=== PATIENT | female | born 1980 | race Caucasian/White ===

== ENCOUNTER → 2018-11-21 | Day surgery (SDC) | payer MEDICAID ==
--- NOTE | 2018-11-20 14:32 | PREOPHP ---
Scheduled for outpatient surgery 11/21/2018. HISTORY OF PRESENT ILLNESS: The patient is a 38-year-old female in overall good health who has had an enlarging painful lump in the left breast for the past 4 years. Mammogram revealed a 2.5 cm mass in the upper outer quadrant at 1 o'clock. Ultrasound revealed the same finding with a mass at 1 o'clock approximately 4 cm from the nipple. 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 In view of the persistence and associated pain, she is going to undergo excision of the left breast mass. PAST MEDICAL HISTORY: None. ALLERGIES: NONE. OPERATIONS: None. OBSTETRIC AND GYNECOLOGIC HISTORY: 3, para 3. She has regular menstrual periods. PHYSICAL EXAMINATION: VITAL SIGNS: She is 5-foot 3 inches, 119 pounds with normal vital signs. HEENT: Within normal limits. LUNGS: Clear. HEART: Regular rate, rhythm. BREASTS: Small to medium in size and not ptotic. Right breast is unremarkable. The left breast has a mobile firm 2 cm nodule at 1 o'clock in the upper outer quadrant approximately 5 cm from the nipple. There is no axillary or supraclavicular lymphadenopathy. ABDOMEN: Soft. PELVIC AND RECTAL: Per primary care. EXTREMITIES: Without edema. NEUROLOGIC: Physiologic. IMPRESSION: Left breast mass with pain and enlargement. PLAN: I had a full discussion with the patient regarding the nature of her condition and the nature of the surgery, indications, alternatives, options and risks including bleeding, infection, scarring or distortion of the breast or nipple, need for additional surgery or treatment based on final pathology, et cetera. All questions have been answered. She understands and agrees to proceed with excision of left breast mass as an outpatient under general anesthesia. Dictated By: MARISOL LYNCH/JOHN Conf#: [id number] DID#: [id number] MTDD
[~2018-11-21] VITALS: Ht 154.9 cm; Wt 53.9 kg
[2018-11-21] VITALS (15 sets, daily range): BP systolic 105–115; BP diastolic 58–69; PULSE 60–84; RESP 13–18; Ht 154.9 cm; Wt 53.9 kg
[~2018-11-21] MED LIST: ACETAMINOPHEN 500 MG TAB PO ONE; ALBUTEROL 0.083% (NEB) 2.5 MG/3 ML AMP HHN PRN; BUPIVACAINE 0.5% (SDV) 30 ML INJ ONE; BUPIVACAINE 0.5%/EPI (SDV) 30 ML INJ ONE; DIPHENHYDRAMINE 50 MG INJ IV PRN; EPHEDrine 25 MG/5 ML SYG ONE; FAMOTIDINE 20 MG INJ ONE; FENTAnyl 50 MCG/ML VIAL IV PRN; FENTAnyl 50 MCG/ML VIAL ONE; HYDROmorphONE 1 MG/5 ML IV SYRINGE IV PRN; LABETALOL HCL 20MG INJ IV PRN; LIDOCAINE 2% (SDV) 5 ML INJ ONE; MEPERIDINE 25 MG INJ IV PRN; MIDAZOLAM 1 MG/ML 2 ML INJ ONE; ONDANSETRON 4 MG INJ IV PRN; ONDANSETRON 4 MG INJ ONE; OXYCODONE/ACETAMINOPHEN (5/325) TAB PO PRN; PROPOFOL 40 ML ONE; morphine (1 MG/ML) 10ML SYRINGE IV PRN
--- NOTE | 2018-11-21 09:00 | HPN ---
Date/Time of Note Date/Time of Note DATE: 11/21/18 TIME: 09:00 Interval H&P Admission Note Pt. seen H&P reviewed: No system changes MARISOL BOURNE Nov 21, 2018 09:00
--- NOTE | 2018-11-21 09:08 | PREAC ---
Date/Time of Note Date/Time of Note DATE: 11/21/18 TIME: 09:07 Anesthesia Eval and Record Evaluation Time Pre-Procedure Interview DATE: 11/21/18 TIME: 09:07 Age 38 Sex female NPO: 8 hrs Preoperative diagnosis L breast mass Planned procedure L breast mass excision Past Medical History Past Medical History: None Surgery & Anesthesia Issues No known issue Meds Anticoagulation: No Beta Ambrosio within 24 hr: No Reason Beta Ambrosio not given: Pt. not on B-Ambrosio No Active Prescriptions or Reported Meds Meds reviewed: Yes Allergies Coded Allergies: No Known Allergy (Unverified , 11/21/18) Allergies Reviewed: Yes Labs/Studies Labs Reviewed: Reviewed by anesthesiologist test: Negative Pre-procedure Exam Airway: Adequate mouth opening, Adequate thyromental dist Mallampati: Mallampati II Teeth: Normal Lung: Normal Heart: Normal ASA Physical Status ASA physical status: 1 Emergency: None Planned Anesthetic General/MAC: LMA Pre-operative Attestations Prior to commencing anesthesia and surgery, the patient was re-evaluated, there was verification of: *The patient's identity *The results of appropriate recent lab work and preoperative vital signs *The above evaluation not changing prior to induction *Anesthetic plan, risk benefits, alternative and complications discussed with patient/family; questions answered; patient/family understands, accepts and wishes to proceed. Production Assistant used ADOLFO MCCALL Nov 21, 2018 09:08
--- NOTE | 2018-11-21 11:27 | SIPON ---
Date/Time of Note Date/Time of Note DATE: 11/21/18 TIME: 11:26 Operative Report Preoperative Diagnosis left breast mass Postoperative Diagnosis same Operation/Procedure Performed excision left breast mass Surgeon see signature line data assistant none Anesthesia: general Estimated blood loss: minimal Transfusion Required none Specimen left breast mass Grafts/Implants none Complications none MARISOL BOURNE Nov 21, 2018 11:27
--- NOTE | 2018-11-21 11:30 | PAC ---
Date/Time of Note Date/Time of Note DATE: 11/21/18 TIME: 11:29 Post-Anesthesia Notes Post-Anesthesia Note Last documented vital signs Vital Signs Date Temp Pulse Resp B/P (MAP) Pulse Ox O2 O2 Flow FiO2 Time Delivery Rate 11/21/18 98.4 98 66 73 16 18 112/58 100 100 Room 09:08 112 (76) 100/ Air face 6 49 mask 6L Activity: WNL Respiratory function: WNL Cardiovascular function: WNL Mental status: Baseline Pain reasonably controlled: Yes Hydration appropriate: Yes Nausea/Vomiting absent: Yes ADOLFO MCCALL Nov 21, 2018 11:30
--- NOTE | 2018-11-21 12:37 | OPR ---
DATE OF OPERATION: 11/21/2018 SURGEON: Marisol Campbell MD RESEARCH AND DEVELOPMENT ENGINEER: Tess Langley NP TYPE OF ANESTHESIA: General. PREOPERATIVE DIAGNOSIS: Left breast mass. POSTOPERATIVE DIAGNOSIS: Left breast mass. OPERATION PERFORMED: Excision of left breast mass. The patient has a 4-year history of a painful sl owly enlarging mass with core biopsy revealing fibroadenoma. At surgery, there was a nearly 3 cm in diameter round mass that was excised by enucleation. DESCRIPTION OF PROCEDURE: The patient was taken to the operating room and under general anesthesia, with sequential compression device stockings in place, she was prepped and draped in usual fashion. A transverse curvilinear incision was made in the upper outer quadrant of the left breast with a lesi on located midway between the areola and the periphery. The flaps were dissected circumferentially a nd the mass was grasped with a sharp towel clip. It was excised by enucleation, removing it in its e ntirety. Hemostasis carefully achieved with cautery. The wound irrigated and hemostasis was secured . The incision was closed with interrupted 3-0 Vicryl, followed by continuous 4-0 Monocryl subcuticu lar suture. Mastisol and 1/2-inch Steri-Strips were applied, followed by dry sterile dressing. Leatha l sponge and needle counts were correct. The patient tolerated the procedure well and left the [facility] room in good condition. Dictated By: MARISOL LYNCH/JOHN Conf#: [id number] DID#: [id number]
== END | disposition home or self-care (01) ==
LOC: SDS 07:52
PROVIDERS: ATTEND Surgery
DX: D24.2 Benign neoplasm of left breast (principal)
CPT/HCPCS: 19120; 88307; J2250; J2405; J3010; Z7610